=== PATIENT | female | born 1980 | race Caucasian/White ===

== ENCOUNTER 2019-06-29 14:18 | Emergency (ER) | payer OTHER, SELFPAY ==
--- NOTE | 2019-06-29 16:06 | EDPHYS ---
Physician Documentation [facility] Name: Charu Lebron Age: 38 yrs Sex: Female : 1980 Arrival Date: 06/29/2019 Time: 14:22 Bed 9 Private MD: ED Physician Julius Benton HPI: 06/29 17:33 This 38 yrs old Female presents to ER via Ambulatory with complaints of Sore snw Throat, Skin Problem. 17:33 The patient presents with sore throat. The patient describes throat pain as dry, snw scratchy. Onset: The symptoms/episode began/occurred suddenly, 3 day(s) ago, and became persistent. Severity of symptoms: At their worst the symptoms were moderate, severe. Associated signs and symptoms: Pertinent positives: flu-like symptoms, Sore throat. The patient has not experienced similar symptoms in the past. The patient has not recently seen a physician. 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 - Social history:: Smoking status: . - Ebola Screening: : Patient denies travel to an Ebola-affected area in the 21 days before illness onset. ROS: 17:30 Eyes: Negative for injury, pain, redness, and discharge, ENT: Negative for injury and snw discharge, + sore throat Neck: Negative for injury, pain, and swelling, Cardiovascular: Negative for chest pain, palpitations, and edema, Respiratory: Negative for shortness of breath, cough, wheezing, and pleuritic chest pain, Abdomen/GI: Negative for abdominal pain, nausea, vomiting, diarrhea, and constipation, Back: Negative for injury and pain, : Negative for injury, bleeding, discharge, and swelling, MS/Extremity: Negative for injury and deformity, Neuro: Negative for headache, weakness, numbness, tingling, and seizure, Psych: Negative for depression, anxiety, suicide ideation, homicidal ideation, and hallucinations, Allergy/Immunology: Negative for hives, rash, and allergies. 17:30 Constitutional: Positive for fatigue, malaise, sore throat. 17:30 Skin: Positive for rash. Exam: 17:29 Head/Face: Normocephalic, atraumatic. Eyes: Pupils equal round and reactive to light, snw extra-ocular motions intact. Lids and lashes normal. Conjunctiva and sclera are non-icteric and not injected. Cornea within normal limits. Periorbital areas with no swelling, redness, or edema. ENT: Nares patent. No nasal discharge, no septal abnormalities noted. Tympanic membranes are normal and external auditory canals are clear. Oropharynx with no redness, swelling, or masses, exudates, or evidence of obstruction, uvula midline. Mucous membranes moist. Neck: Trachea midline, no thyromegaly or masses palpated, and no cervical lymphadenopathy. Supple, full range of motion without nuchal rigidity, or vertebral point tenderness. No Meningismus. Chest/axilla: Normal chest wall appearance and motion. Nontender with no deformity. No lesions are appreciated. Cardiovascular: Regular rate and rhythm with a normal S1 and S2. No gallops, murmurs, or rubs. Normal PMI, no JVD. No pulse deficits. Respiratory: Lungs have equal breath sounds bilaterally, clear to auscultation and percussion. No rales, rhonchi or wheezes noted. No increased work of breathing, no retractions or nasal flaring. Abdomen/GI: Soft, non-tender, with normal bowel sounds. No distension or tympany. No guarding or rebound. No evidence of tenderness throughout. Back: No spinal tenderness. No costovertebral tenderness. Full range of motion. MS/ Extremity: Pulses equal, no cyanosis. Neurovascular intact. Full, normal range of motion. Neuro: Awake and alert, GCS 15, oriented to person, place, time, and situation. Cranial nerves II-XII grossly intact. Motor strength 5/5 in all extremities. Sensory grossly intact. Cerebellar exam normal. Normal gait. Psych: Awake, alert, with orientation to person, place and time. Behavior, mood, and affect are within normal limits. 17:29 Constitutional: The patient appears alert, awake. 17:29 Skin: Appearance: normal except for affected area, eczema, on the right arm and left arm. Vital Signs: 14:24 BP 139 / 75; Pulse 93; Resp 17; Temp 98.8(O); Pulse Ox 100% on R/A; Weight 95.71 kg tw2 (R); Pain 5/10; MDM: 14:47 Patient medically screened. snw 17:33 Data reviewed: vital signs, nurses notes. Data interpreted: Pulse oximetry: on room air snw is 100 %. Interpretation: normal. Counseling: I had a detailed discussion with the patient and/or guardian regarding: the historical points, exam findings, and any diagnostic results supporting the discharge/admit diagnosis, the presence of at least one elevated blood pressure reading (>120/80) during this emergency department visit, lab results, the need for outpatient follow up, to return to the emergency department if symptoms worsen or persist or if there are any questions or concerns that arise at home. Special discussion: I have referred the patient to see his PCP for further evaluation of high blood pressure. Based on the history and exam findings, there is no indication for further emergent testing or inpatient evaluation. I discussed with the patient/guardian the need to see the primary care provider for further evaluation of the symptoms. 06/29 14:42 Order name: Flu; Complete Time: 15:48 snw 06/29 14:42 Order name: Strep; Complete Time: 15:48 snw 06/29 15:43 Order name: Throat Culture EDAR Administered Medications: No medications were administered Disposition: 06/29/19 16:05 Discharged to Home. Impression: Influenza due to other identified influenza virus - B, Eczema. - Condition is Stable. - Discharge Instructions: Eczema, Influenza, Adult, Rehydration, Adult. - Prescriptions for promethazine 25 mg Oral Tablet - take 1 tablet by ORAL route every 6 hours As needed; 20 tablet. - Medication Reconciliation Form, Thank You Letter, Antibiotic Education, Prescription Opioid Use, Work release form form. - Follow up: Private Physician; When: 1 week; Reason: Recheck today's complaints, Continuance of care, Re-evaluation by your physician. Follow up: Emergency Department; When: As needed; Reason: Worsening of condition. Addendum: 07/03/2019 06:31 Co-signature as Attending Physician, Julius Benton MD I agree with the assessment and k dr plan of care. Signatures: Dispatcher [employer] EDAR Julius Benton MD MD [facility] Vanna Gonzalez, PARAOPTOMETRIC-C PARAOPTOMETRIC-Csnw Amna Young RN RN tw2 Corrections: (The following items were deleted from the chart) 06/29 16:19 16:05 06/29/2019 16:05 Discharged to Home. Impression: Influenza due to other tw2 identified influenza virus - B; Eczema. Condition is Stable. Forms are Work release form, Medication Reconciliation Form, Thank You Letter, Antibiotic Education, Prescription Opioid Use. Follow up: Private Physician; When: 1 week; Reason: Recheck today's complaints, Continuance of care, Re-evaluation by your physician. Follow up: Emergency Department; When: As needed; Reason: Worsening of condition. snw
--- NOTE | 2019-06-29 16:06 | ER ---
Nurse's Notes [facility] Name: Charu Lebron Age: 38 yrs Sex: Female : 1980 Arrival Date: 06/29/2019 Time: 14:22 Bed 9 Private MD: Diagnosis: Influenza due to other identified influenza virus-B;Eczema Presentation: 06/29 14:23 Presenting complaint: Patient states: i have had a cough and sore throat for a week, tw2 and i have had spots on my RIGHT arm for a week and a little on my left arm. Presenting complaint: Patient states: i dont know if its poison ezequiel or what. Transition of care: patient was not received from another setting of care. Onset of symptoms was June 29, 2019. Risk Assessment: Do you want to hurt yourself or someone else? Patient reports no desire to harm self or others. Initial Sepsis Screen: Does the patient meet any 2 criteria? No. Patient's initial sepsis screen is negative. Does the patient have a suspected source of infection? No. Patient's initial sepsis screen is negative. Care prior to arrival: None. 14:23 Method Of Arrival: Ambulatory tw2 14:23 Acuity: MELVIN 4 tw2 Triage Assessment: 14:25 General: Appears in no apparent distress. Behavior is calm, cooperative, appropriate tw2 for age. Pain: Complains of pain in uvula, left aspect of posterior pharynx and right aspect of posterior pharynx. EENT: Reports nasal congestion nasal discharge pain when swallowing. 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 - Social history:: Smoking status: . - Ebola Screening: : Patient denies travel to an Ebola-affected area in the 21 days before illness onset. Screenin:35 Abuse screen: Denies threats or abuse. Nutritional screening: No deficits noted. tw2 Tuberculosis screening: No symptoms or risk factors identified. Fall Risk None identified. Assessment: 14:35 General: Appears in no apparent distress. obese, Behavior is calm, cooperative, tw2 appropriate for age. Cardiovascular: Heart tones S1 S2 Patient's skin is warm and dry. Respiratory: Airway is patent Respiratory effort is even, unlabored, Respiratory pattern is regular, symmetrical, Breath sounds are clear bilaterally. EENT: Throat is reddened. Derm: Rash noted that is red, raised, on right leg and left leg. Vital Signs: 14:24 BP 139 / 75; Pulse 93; Resp 17; Temp 98.8(O); Pulse Ox 100% on R/A; Weight 95.71 kg tw2 (R); Pain 5/10; ED Course: 14:22 Patient arrived in ED. as 14:24 Triage completed. tw2 14:25 Arm band placed on. tw2 14:26 Bed in low position. Call light in reach. tw2 14:42 Vanna Gonzalez FNP-C is [facility]. snw 14:42 Julius Benton MD is Attending Physician. snw 16:02 Amna Young, RN is Primary Nurse. tw2 16:18 No provider procedures requiring assistance completed. Patient did not have IV access tw2 during this emergency room visit. Administered Medications: No medications were administered Outcome: 16:05 Discharge ordered by . snw 16:18 Discharged to home ambulatory. tw2 16:18 Condition: good 16:18 Discharge instructions given to patient, family, Instructed on discharge instructions, follow up and referral plans. medication usage, Demonstrated understanding of instructions, follow-up care, medications, Prescriptions given X 1. 16:19 Patient left the ED. tw2 Signatures: Vanna Gonzalez FNP-C WELT INSOLE CHANNELER-Csnw Varsha Lazaro as Amna Young, RN RN tw2
[2019-06-29 16:41] VITALS: BP 139/75; TEMP 98.8; O2SAT 100
== END 2019-06-29 16:19 | disposition home or self-care (01) ==
LOC: ER 14:18
DX: J10.1 Influenza due to other identified influenza virus with other respiratory manifestations (principal); L30.9 Dermatitis, unspecified
CPT/HCPCS: 87070; 87081; 87804; 99282

== ENCOUNTER 2019-08-27 21:53 | Emergency (ER) | payer SELFPAY ==
--- NOTE | 2019-08-27 22:24 | ER ---
Nurse's Notes [facility] Name: Charu Lebron Age: 38 yrs Sex: Female : 1980 Arrival Date: 08/27/2019 Time: 21:55 Bed 17 Private MD: Diagnosis: Sprain of joints and ligaments of unspecified parts of neck Presentation: 08/27 22:09 Presenting complaint: Patient states: C/O back of neck sharp pain radiating to her left arm that started 4 days ago. Transition of care: patient was not received from another setting of care. Onset of symptoms was August 27, 2019. Risk Assessment: Do you want to hurt yourself or someone else? Patient reports no desire to harm self or others. Initial Sepsis Screen: Does the patient meet any 2 criteria? No. Patient's initial sepsis screen is negative. Does the patient have a suspected source of infection? No. Patient's initial sepsis screen is negative. Care prior to arrival: None. 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 - Social history:: Smoking status: Patient/guardian denies using tobacco, Patient/guardian denies using alcohol, street drugs, The patient lives with family. - Ebola Screening: : Patient negative for fever greater than or equal to 101.5 degrees Fahrenheit, and additional compatible Ebola Virus Disease symptoms Patient denies exposure to infectious person. - Family history:: not pertinent. Screenin:11 Abuse screen: Denies threats or abuse. Denies injuries from another. Nutritional screening: No deficits noted. Tuberculosis screening: No symptoms or risk factors identified. Fall Risk None identified. Assessment: 22:12 General: Appears in no apparent distress. Behavior is calm, cooperative, appropriate for age. Pain: Complains of pain in back of neck Pain radiates to left arm Pain currently is 8 out of 10 on a pain scale. Quality of pain is described as sharp, Pain began 2-3 days ago. Neuro: Level of Consciousness is awake, alert, obeys commands, Oriented to person, place, time, situation, Appropriate for age. Cardiovascular: Capillary refill < 3 seconds. Respiratory: Airway is patent Respiratory effort is even, unlabored, Respiratory pattern is regular, symmetrical. GI: Abdomen is flat, non-distended. : No signs and/or symptoms were reported regarding the genitourinary system. EENT: No signs and/or symptoms were reported regarding the EENT system. Derm: Skin is intact, is healthy with good turgor, Skin is pink, warm \T\ dry. normal. Musculoskeletal: Circulation, motion, and sensation intact. Vital Signs: 22:13 BP 128 / 98; Pulse 83; Resp 18; Temp 98.5; Pulse Ox 100% ; Weight 95.71 kg; Height 5 wh ft. 4 in. (162.56 cm); Pain 8/10; 22:13 Body Mass Index 36.22 (95.71 kg, 162.56 cm) ED Course: 21:55 Patient arrived in ED. cl3 21:57 Hemanth Kelly MD is Attending Physician. ma2 22:03 Angel Luis Hart is Primary Nurse. 22:10 Triage completed. 22:12 Patient has correct armband on for positive identification. Bed in low position. Call light in reach. Side rails up X 1. Pulse ox on. NIBP on. 22:14 Arm band placed on right wrist. 22:47 No provider procedures requiring assistance completed. Patient did not have IV access during this emergency room visit. Administered Medications: 22:32 Drug: [place] 5 mg-325 mg 1 tabs Route: PO; 22:47 Follow up: Response: No adverse reaction; Pain is decreased; RASS: Alert and Calm (0) Outcome: 22:23 Discharge ordered by . jeanine 22:47 Discharged to home ambulatory. 22:47 Condition: stable 22:47 Discharge instructions given to patient, Instructed on discharge instructions, follow up and referral plans. no drinking with medication, no driving heavy equipment, medication usage, POC Demonstrated understanding of instructions, follow-up care, medications, POC Prescriptions given X 2. 22:48 Patient left the ED. Signatures: Angel Luis Hart Hemanth Kelly MD MD ma2 Lewis, Charde cl3
--- NOTE | 2019-08-27 22:24 | EDPHYS ---
Physician Documentation [facility] Name: Charu Lebron Age: 38 yrs Sex: Female : 1980 Arrival Date: 08/27/2019 Time: 21:55 Bed 17 Private MD: ED Physician Hemanth Kelly HPI: 08/27 22:21 This 38 yrs old Female presents to ER via Ambulatory with complaints of Arm ma2 Pain. 22:21 The complaints affect the anterior aspect of left shoulder and left bicep. Onset: The ma2 symptoms/episode began/occurred gradually, 3 day(s) ago. Associated signs and symptoms: Pertinent negatives: erythema, nausea, pain, swelling. Severity of symptoms: At their worst the symptoms were mild, in the emergency department the symptoms are unchanged. The patient has not experienced similar symptoms in the past. left neck pain that radiat to left arm . 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 - Social history:: Smoking status: Patient/guardian denies using tobacco, Patient/guardian denies using alcohol, street drugs, The patient lives with family. - Ebola Screening: : Patient negative for fever greater than or equal to 101.5 degrees Fahrenheit, and additional compatible Ebola Virus Disease symptoms Patient denies exposure to infectious person. - Family history:: not pertinent. ROS: 22:21 Constitutional: Negative for fever, chills, and weight loss. ma2 22:21 All other systems are negative. Exam: 22:21 Constitutional: This is a well developed, well nourished patient who is awake, alert, ma2 and in no acute distress. Head/Face: Normocephalic, atraumatic. Eyes: Pupils equal round and reactive to light, extra-ocular motions intact. Lids and lashes normal. Conjunctiva and sclera are non-icteric and not injected. Cornea within normal limits. Periorbital areas with no swelling, redness, or edema. ENT: Nares patent. No nasal discharge, no septal abnormalities noted. Tympanic membranes are normal and external auditory canals are clear. Oropharynx with no redness, swelling, or masses, exudates, or evidence of obstruction, uvula midline. Mucous membranes moist. Neck: Trachea midline, no thyromegaly or masses palpated, and no cervical lymphadenopathy. Supple, full range of motion without nuchal rigidity, or vertebral point tenderness. No Meningismus. Chest/axilla: Normal chest wall appearance and motion. Nontender with no deformity. No lesions are appreciated. Cardiovascular: Regular rate and rhythm with a normal S1 and S2. No gallops, murmurs, or rubs. Normal PMI, no JVD. No pulse deficits. Respiratory: Lungs have equal breath sounds bilaterally, clear to auscultation and percussion. No rales, rhonchi or wheezes noted. No increased work of breathing, no retractions or nasal flaring. Abdomen/GI: Soft, non-tender, with normal bowel sounds. No distension or tympany. No guarding or rebound. No evidence of tenderness throughout. MS/ Extremity: Pulses equal, no cyanosis. Neurovascular intact. Full, normal range of motion. Neuro: Awake and alert, GCS 15, oriented to person, place, time, and situation. Cranial nerves II-XII grossly intact. Motor strength 5/5 in all extremities. Sensory grossly intact. Cerebellar exam normal. Normal gait. Vital Signs: 22:13 BP 128 / 98; Pulse 83; Resp 18; Temp 98.5; Pulse Ox 100% ; Weight 95.71 kg; Height 5 wh ft. 4 in. (162.56 cm); Pain 8/10; 22:13 Body Mass Index 36.22 (95.71 kg, 162.56 cm) MDM: 21:57 Patient medically screened. mt2 22:21 Differential diagnosis: contusion, abrasion, tendonitis. Data reviewed: vital signs, mt2 nurses notes. Counseling: I had a detailed discussion with the patient and/or guardian regarding: the historical points, exam findings, and any diagnostic results supporting the discharge/admit diagnosis, the presence of at least one elevated blood pressure reading (>120/80) during this emergency department visit. Response to treatment: the patient's symptoms have markedly improved after treatment. Administered Medications: 22:32 Drug: [place] 5 mg-325 mg 1 tabs Route: PO; 22:47 Follow up: Response: No adverse reaction; Pain is decreased; RASS: Alert and Calm (0) wh Disposition: 08/27/19 22:23 Discharged to Home. Impression: Sprain of joints and ligaments of unspecified parts of neck. - Condition is Stable. - Discharge Instructions: Muscle Strain, [id number]. - Prescriptions for Tylenol- Codeine #3 300-30 mg Oral Tablet - take 2 tablet by ORAL route every 6 hours As needed; 30 tablet. Cyclobenzaprine 10 mg Oral Tablet - take 1 tablet by ORAL route every 8 hours As needed; 30 tablet. - Medication Reconciliation Form, Thank You Letter, Antibiotic Education, Prescription Opioid Use form. - Follow up: Private Physician; When: Tomorrow; Reason: Continuance of care. Signatures: Angel Luis Hart Mohammad, MD MD ma2 Corrections: (The following items were deleted from the chart) 22:48 22:23 08/27/2019 22:23 Discharged to Home. Impression: Sprain of joints and ligaments wh of unspecified parts of neck. Condition is Stable. Forms are Medication Reconciliation Form, Thank You Letter, Antibiotic Education, Prescription Opioid Use. Follow up: Private Physician; When: Tomorrow; Reason: Continuance of care. ma2
[2019-08-27] MEDS ORDERED: HYDROCODONE/APAP 5/325 MG TAB ONE (22:28)
[2019-08-27 23:31] VITALS: BP 128/98; TEMP 98.5; O2SAT 100
== END 2019-08-27 22:48 | disposition home or self-care (01) ==
LOC: ER 21:53
DX: S13.9XXA Sprain of joints and ligaments of unspecified parts of neck, initial encounter (principal); X58.XXXA Exposure to other specified factors, initial encounter
CPT/HCPCS: 99283

== ENCOUNTER 2019-10-20 18:27 | Emergency (ER) | payer OTHER, SELFPAY ==
--- OUTSIDE RECORDS SUMMARY | 2019-10-20 18:29 | XMS REPORT ---
:1980 [facility] Address [address] [place] [address] Dr. Spence [address] [place] [id number] Care Team Providers Name Role Phone Unavailable Unavailable Unavailable Problems This patient has no known problems. Allergies, Adverse Reactions, Alerts This patient has no known allergies or adverse reactions. Medications This patient has no known medications.
--- OUTSIDE RECORDS SUMMARY | 2019-10-20 18:29 | XMS REPORT | Summary of Care ---
:1980 Author Organization [facility] Address [address] [place] [address] Care Team Providers Name Role Phone Michael Mann Primary Care Provider Encounter Details Date Type Department Care Team Description 09/11/2019 Orders Only [facility] Doctor Unassigned, No [address] [facility] Name [place] [phone] [id number] Allergies No Known Allergiesdocumented as of this encounter (statuses as of 09/11/2019) Medications Medication Sig Dispensed Refills Start Date End Date Status VITS Take by mouth. 0 Active W-CA,FE,FA,<1MG, ( VITAMIN ORAL) acetaminophen-codeine Take 1 tablet 0 Active (TYLENOL-CODEINE #4) by mouth every 300-60 mg tablet 4 (four) hours as needed for Pain. meloxicam 15 mg tablet Take 15 mg by 0 Active mouth daily. diphenhydrAMINE (BENADRYL Take 25 mg by 0 Active ALLERGY) 25 mg tablet mouth every 4 (four) hours as needed for Allergies. cetirizine (ZYRTEC) 10 mg Take 10 mg by 0 Active tablet mouth as needed for Allergies. documented as of this encounter (statuses as of 09/11/2019) Active Problems Problem Noted Date High-risk 06/18/2013 Overview: AMA at delivery. Genetics and detailed USG. 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 " a low uterine incision was made". 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 documented as of this encounter Last Filed Vital Signs Not on filedocumented in this encounter Plan of Treatment Health Maintenance Due Date Last Done Comments DTaP,Tdap,and Td Vaccines (1 - 08/16/2007 08/15/2007 Tdap) PAP SMEAR 06/11/2016 06/11/2013 Breast Cancer Screening 2018 (MAMMOGRAM) INFLUENZA VACCINE (#1) 2019 PNEUMOCOCCAL 0-64 YEARS COMBINED Aged Out No longer eligible based on SERIES patient's age to complete this topic documented as of this encounter Implants Implanted Type Area Sole Leveler Device Shelf Model / Identifier Expiration Date Serial / Lot Lolita Suture 5mm Tiffany 15.5mml Threaded Corkscrew [employer] Ref#[id number] - [id number] ANCHOR Right: [employer] 07/15/2019 [id number] / Implanted: Qty: 1 on 03/03/2018 by Gerber Felix DPM at [facility] [id number] / [id number] documented as of this encounter Procedures Procedure Name Priority Date/Time Associated Diagnosis Comments CONSENT/REFUSAL FOR Routine 09/11/2019 8:41 AM SENIOR TRAINING AND DEVELOPMENT REP DIAGNOSIS AND TREATMENT documented in this encounter Results Not on filedocumented in this encounter Insurance Payer Benefit Plan / Group Subscriber ID Effective Dates Phone Address Type AETNA AETNA HMO [id number] 2017-Present HMO documented as of this encounter
--- OUTSIDE RECORDS SUMMARY | 2019-10-20 18:30 | XMS REPORT | Summary of Care ---
:1980 Author Organization [facility] Address [address] [place] [address] Care Team Providers Name Role Phone Michael Mann Primary Care Provider Reason for Referral MRI/CAT Scan (STAT) Status Reason Specialty Diagnoses / Referred By Referred To Procedures Contact Contact New Request Diagnostic Diagnoses Acute left flank pain Luis Fernando Thornton Radiology Procedures CT ABDOMEN PELVIS WO LEILA Espinoza MD [address] [address] Reason for Visit Reason Comments Flank Pain Encounter Details Date Type Department Care Team Description 10/03/2019 Emergency ADC-Emergency Luis Fernando Thornton, Acute left flank pain (Primary Dx); Department Abdominal pain, unspecified abdominal location [address] [place] [address] [address] [place] [address] [facility] [phone] [place], [place] [id number] Allergies No Known Allergiesdocumented as of this encounter (statuses as of 10/03/2019) Medications Medication Sig Dispensed Refills Start Date End Date Status VITS Take by 0 Active W-CA,FE,FA,<1MG, mouth. ( VITAMIN ORAL) acetaminophen-codein Take 1 tablet 0 Active e (TYLENOL-CODEINE by mouth #4) 300-60 mg tablet every 4 (four) hours as needed for Pain. meloxicam 15 mg Take 15 mg by 0 Active tablet mouth daily. diphenhydrAMINE Take 25 mg by 0 Active (BENADRYL ALLERGY) mouth every 4 25 mg tablet (four) hours as needed for Allergies. cetirizine (ZYRTEC) Take 10 mg by 0 Active 10 mg tablet mouth as needed for Allergies. ibuprofen 600 mg Take 1 tablet 21 tablet 0 09/11/2019 Active tabletIndications: by mouth 3 Left cervical (three) times radiculopathy daily with meals. predniSONE 20 mg Take 2 30 tablet 0 09/11/2019 Active tabletIndications: tablets by Left cervical mouth daily radiculopathy for 5 days. traMADol (ULTRAM) 50 Take 1 tablet 20 tablet 0 10/03/2019 Active mg by mouth tabletIndications: every 6 (six) Acute left flank hours as pain needed for Pain (scale 7-10). ondansetron (ZOFRAN) Take 1 tablet 12 tablet 0 10/03/2019 Active 4 mg by mouth tabletIndications: every 8 Acute left flank (eight) hours pain as needed for Nausea and Vomiting (N/V). ondansetron (ZOFRAN) Take 1 tablet 12 tablet 0 10/03/2019 10/03/19 Discontinued 4 mg by mouth 20 (Duplicate) tabletIndications: every 8 Acute left flank (eight) hours pain as needed for Nausea and Vomiting (N/V). documented as of this encounter (statuses as of 10/03/2019) Active Problems Problem Noted Date High-risk 06/18/2013 Overview: AMA at delivery. Genetics and detailed USG. 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 " a low uterine incision was made". 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[employer] Utility documented as of this encounter (statuses as of 10/03/2019) Immunizations Name Administration Dates Next Due Td [...] of this encounter Last Filed Vital Signs Vital Sign Reading Time Taken Comments Blood Pressure 147/66 10/03/2019 5:00 AM DISPLAY DESIGNER Pulse 69 10/03/2019 5:00 AM DISPLAY DESIGNER Temperature 36.2 C (97.2 F) 10/03/2019 3:57 AM DISPLAY DESIGNER Respiratory Rate 20 10/03/2019 3:57 AM DISPLAY DESIGNER Oxygen Saturation 100% 10/03/2019 5:00 AM DISPLAY DESIGNER Inhaled Oxygen Concentration - - Weight 95.7 kg (211 lb) 10/03/2019 3:57 AM DISPLAY DESIGNER Height 162.6 cm (5' 4") 10/03/2019 3:57 AM DISPLAY DESIGNER Body Mass Index 36.22 10/03/2019 3:57 AM DISPLAY DESIGNER documented in this encounter Discharge Instructions Luis Fernando Barlow MD - 10/03/2019 DIAGNOSIS Diagnoses that have been ruled out: None Diagnoses that are still under consideration: None Final diagnoses: Acute left flank pain NO LIFE-THREATENING FINDINGS ON TODAY'S EXAM. PROCEDURES IN THE ER TODAY: Orders Placed This Encounter Procedures CT ABDOMEN PELVIS WO CONTRAST Complete Metabolic Panel CBC with Differential Lipase, Serum Urinalysis POCT Test CBC WITH DIFFERENTIAL MEDICATIONS ADMINISTERED IN THE ER TODAY AND DISCHARGE MEDICATIONS: Orders Placed This Encounter Medications ketorolac (TORADOL) injection 30 mg ondansetron (ZOFRAN (PF)) injection 4 mg ondansetron (ZOFRAN) 4 mg tablet traMADol (ULTRAM) 50 mg tablet FOLLOW-UP RECOMMENDATIONS: RECOMMEND FOLLOW-UP WITH A PRIMARY CARE PROVIDER OR SPECIALIST IN 2-5 DAYS, ESPECIALLY IF NO IMPROVEMENT IN SYMPTOMS. MAY FOLLOW-UP WITH A PROVIDER OF YOUR CHOICE, SUCH : 1. A PHYSICIAN OF YOUR CHOICE 2. [facility], . LOCATIONS IN [facility] 3. [facility], [address] [place] [address]; [phone] OR, IF YOU WISH TO FOLLOW-UP WITHIN THE [facility], MAY TRY THESE OPTIONS (CLINIC APPOINTMENTS AVAILABLE ON [id number] BASIS): 1. SCHEDULE AN APPOINTMENT ONLINE AT [facility] 2. OR CALL THE [facility] AT OR 3. OR CALL YOUR [facility] PHYSICIAN'S OFFICE DIRECTLY IF YOU ARE ALREADY AN ESTABLISHED [facility] PATIENT. RETURN TO ER FOR WORSENING OF SYMPTOMS documented in this encounter Plan of Treatment Health Maintenance Due Date Last Done Comments DTaP,Tdap,and Td Vaccines (1 - 1989 08/15/2007 Tdap) PAP SMEAR 06/11/2016 06/11/2013 Breast Cancer Screening 2018 (MAMMOGRAM) INFLUENZA VACCINE (#1) 2019 PNEUMOCOCCAL 0-64 YEARS COMBINED Aged Out No longer eligible based on SERIES patient's age to complete this topic documented as of this encounter Implants Implanted Type Area Payment Manager Device Shelf Model / Identifier Expiration Date Serial / Lot [place] Suture 5mm Tiffany 15.5mml Threaded Corkscrew Arthrex Ref#[id number] - [id number] ANCHOR Right: [employer] 07/15/2019 AR-1920S / Implanted: Qty: 1 on 03/03/2018 by Gerber Felix DPM at [facility] Foot [id number] / [id number] documented as of this encounter Procedures Procedure Name Priority Date/Time Associated Diagnosis Comments CT ABDOMEN PELVIS WO STAT 10/03/2019 4:26 Acute left flank Results for this CONTRAST AM DISPLAY DESIGNER pain procedure are in the results section. CBC WITH DIFFERENTIAL STAT 10/03/2019 4:12 Abdominal pain, Results for this AM DISPLAY DESIGNER unspecified procedure are in abdominal location the results section. POCT TEST Routine 10/03/2019 4:12 Abdominal pain, Results for this AM DISPLAY DESIGNER unspecified procedure are in abdominal location the results section. URINALYSIS STAT 10/03/2019 4:12 Abdominal pain, Results for this AM DISPLAY DESIGNER unspecified procedure are in abdominal location the results section. CBC WITH DIFFERENTIAL Routine 10/03/2019 4:12 Abdominal pain, Results for this AM DISPLAY DESIGNER unspecified procedure are in abdominal location the results section. COMP. METABOLIC PANEL STAT 10/03/2019 4:12 Abdominal pain, Results for this (33781) AM DISPLAY DESIGNER unspecified procedure are in abdominal location the results section. LIPASE STAT 10/03/2019 4:12 Abdominal pain, Results for this AM DISPLAY DESIGNER unspecified procedure are in abdominal location the results section. ASSIGNMENT OF Routine 10/03/2019 4:00 BENEFITS AM DISPLAY DESIGNER NOTICE OF PRIVACY Routine 10/03/2019 3:50 PRACTICES AM DISPLAY DESIGNER CONSENT/REFUSAL FOR Routine 10/03/2019 3:49 DIAGNOSIS AND AM DISPLAY DESIGNER TREATMENT documented in this encounter Results CT ABDOMEN PELVIS WO CONTRAST (10/03/2019 4:26 AM DISPLAY DESIGNER) Specimen Impressions Performed At PACS/VR/DOSE No hydronephrosis. No ureteral stones. Tiny punctate nonobstructive stones in the right kidney, measuring up to 2 mm No acute inflammatory process No free fluid No dilated loops of bowel RL: [address] ABDOMEN AND PELVIS WITHOUT IV CONTRAST PACS/VR/DOSE ORDERING PHYSICIAN: LUIS FERNANDO THORNTON HISTORY: Acute flank pain TECHNIQUE: Multiple axial CT images of the abdomen and pelvis were obtained without IV or PO contrast. CT scan performed according to ALARA (As low as reasonably achievable) principles. COMPARISON: None available. FINDINGS: Heart size normal. Lower lungs are clear. Liver, gallbladder, pancreas, spleen, adrenals, are unremarkable. Punctate nonobstructive stones are seen within the right kidney, measuring up to 2 mm. No ureteral stones. No hydronephrosis bilaterally. No hydroureter bilaterally. Bladder is unremarkable. No dilated loops of bowel. No evidence for appendicitis. No free fluid. Procedure Note [facility], Radiant Results Inft User - 10/03/2019 4:[address] ABDOMEN AND PELVIS WITHOUT IV CONTRAST ORDERING PHYSICIAN: LUIS FERNANDO THORNTON HISTORY: Acute flank pain TECHNIQUE: Multiple axial CT images of the abdomen and pelvis were obtained without IV or PO contrast. CT scan performed according to ALARA (As low as reasonably achievable) principles. COMPARISON: None available. FINDINGS: Heart size normal. Lower lungs are clear. Liver, gallbladder, pancreas, spleen, adrenals, are unremarkable. Punctate nonobstructive stones are seen within the right kidney, measuring up to 2 mm. No ureteral stones. No hydronephrosis bilaterally. No hydroureter bilaterally. Bladder is unremarkable. No dilated loops of bowel. No evidence for appendicitis. No free fluid. IMPRESSION No hydronephrosis. No ureteral stones. Tiny punctate nonobstructive stones in the right kidney, measuring up to 2 mm No acute inflammatory process No free fluid No dilated loops of bowel RL: 5252 Performing Organization Address City/State/Zipcode Phone Number PACS/VR/DOSE CBC WITH DIFFERENTIAL (10/03/2019 4:12 AM DISPLAY DESIGNER) WBC 8.06 4.30 - 11.10 [facility] 10*3/L HOSPITAL [facility]ORY RBC 4.45 3.93 - 5.25 [facility] 10*6/L HOSPITAL [facility] HGB 12.0 11.6 - 15.0 [facility] g/dL HOSPITAL [facility] HCT 38.5 35.7 - 45.2 % [facility] MCV 86.5 80.6 - 95.5 fL [facility] MCH 27.0 25.9 - 32.8 pg [facility] MCHC 31.2 (L) 31.6 - 35.1 [facility] g/dL [facility] RDW-SD 43.6 39.0 - 49.9 fL [facility] RDW-CV 13.8 12.0 - 15.5 % [facility] PLT 306 166 - 358 [facility] 10*3/L [facility] MPV 9.4 (L) 9.5 - 12.9 fL [facility] NRBC/100 WBC 0.0 0.0 - 10.0 /100 [facility] WBCs [facility] NRBC x10^3 <0.01 10*3/L [facility] GRAN MAT (NEUT) % 72.9 % [facility] IMM GRAN % 0.20 % [facility] LYMPH % 14.5 % [facility] MONO % 5.5 % [facility] EOS % 6.3 % [facility] BASO % 0.6 % [facility] GRAN MAT x10^3(ANC) 5.87 1.88 - 7.09 [facility] 10*3/uL HOSPITAL LAB[facility]ORY IMM GRAN x10^3 <0.03 0.00 - 0.06 [facility] 10*3/uL HOSPITAL [facility] LYMPH x10^3 1.17 (L) 1.32 - 3.29 [facility] 10*3/uL HOSPITAL LAB[facility] MONO x10^3 0.44 0.33 - 0.92 [facility] 10*3/uL HOSPITAL LAB[facility] EOS x10^3 0.51 (H) 0.03 - 0.39 [facility] 10*3/uL HOSPITAL LAB[facility] BASO x10^3 0.05 0.01 - 0.07 [facility] 10*3/uL [facility] Specimen Blood - VENOUS Performing Organization Address [facility] Centercode Phone Number [facility] CLIA: [id number], [address] [place] [address] POCT Test (10/03/2019 4:12 AM DISPLAY DESIGNER) POCT PREG negative On board controls acceptable present with C Line POCT PREG LOT # [id number] POCT PREG TEST DATE 03/14/2021 Specimen Urine - URINE, CLEAN CATCH Urinalysis (10/03/2019 4:12 AM DISPLAY DESIGNER) APPEARANCE Hazy (A) Clear [facility] COLOR Yellow Yellow [facility] PH 5.0 4.8 - 8.0 [facility] SP GRAVITY 1.024 1.003 - 1.030 [facility] GLU U QUAL Normal Normal [facility] BLOOD 3+ (A) Negative [facility] KETONES Negative Negative [facility] PROTEIN Negative Negative [facility] UROBILIN Normal Normal [facility] BILIRUBIN Negative Negative [facility] NITRITE Negative Negative [facility] LEUK ALONDRA Negative Negative [facility] RBC/HPF >182 (H) 0 - 3 HPF [facility] WBC/HPF 6 (H) 0 - 5 HPF [facility] BACTERIA Few (A) Negative [facility] MUCOUS Moderate (A) Negative LPF [facility] SQ EPITH 9 HPF [facility] YEAST BUD 1 <=1 HPF [facility] HYAL CAST 1 <=2 LPF [facility] Specimen Urine - URINE, CLEAN CATCH Performing Organization Address City/[facility]/Zipcode Phone Number [facility] CLIA: [id number], [address] [place] [address] Lipase, Serum (10/03/2019 4:12 AM DISPLAY DESIGNER) LIPASE 148 0 - 220 U/L [facility] LABOR[facility]ORY Specimen Blood - VENOUS Performing Organization Address City/[facility]/Zipcode Phone Number [facility] CLIA: [id number], [address] [place] [address] [facility] [address] Complete Metabolic Panel (10/03/2019 4:12 AM DISPLAY DESIGNER) NA 139 135 - 145 [facility] mmol/L [facility] K 4.4 3.5 - 5.0 [facility] mmol/L [facility] CL 109 (H) 98 - 108 mmol/L [facility] CO2 TOTAL 22 (L) 23 - 31 mmol/L [facility] AGAP 8 2 - 16 [facility] BUN 14 7 - 23 mg/dL [facility] GLUCOSE 104 70 - 110 mg/dL [facility] CREATININE 0.70 0.50 - 1.04 [facility] mg/dL [facility] TOTAL BILI 0.5 0.1 - 1.1 mg/dL [facility] CALCIUM 9.1 8.6 - 10.6 [facility] mg/dL [facility] T PROTEIN 7.2 6.3 - 8.2 g/dL [facility] ALBUMIN 4.2 3.5 - 5.0 g/dL [facility] ALK PHOS 85 34 - 122 U/L [facility] ALTv 19 5 - 35 U/L [facility] AST(SGOT) 29 13 - 40 U/L [facility] eGFR Calculation 92.7 mL/min/1.73m2 [facility] [place]) eGFR Calculation 112.3 mL/min/1.73m2 [facility] ([facility]) [facility] Specimen Blood - VENOUS Narrative Performed At Association of Glomerular Filtration Rate (GFR) [facility] LABORATORY and Staging of Kidney Disease* + + +- + | GFR (mL/min/1.73 m2) | With Kidney Damage | Without Kidney Damage + + +- + | >90 | Stage one | Normal + + +- + | 60-89 | Stage two | Decreased GFR + + +- + | 30-59 | Stage three | Stage three + + +- + | 15-29 | Stage four | Stage four + + +- + | <15 (or dialysis) | Stage five | Stage five + + +- + *Each stage assumes the associated GFR level has been in effect for at least three months. Stages 1 to 5, with or without kidney disease, indicate chronic kidney disease. Notes: Determination of stages one and two (with eGFR >59mL/min/1.73 m2) requires estimation of kidney damage for at least three months as defined by structural or functional abnormalities of the kidney, manifested by either: Pathological abnormalities or Markers of kidney damage (including abnormalities in the composition of the blood or urine or abnormalities in imaging tests). Performing Organization Address City/State/Zipcode Phone Number [facility] CLIA: [id number], [address] [place] [address] documented in this encounter Visit Diagnoses Diagnosis Acute left flank pain - Primary Abdominal pain, unspecified site Abdominal pain, unspecified abdominal location documented in this encounter Administered Medications Medication Order MAR Action Action Date Dose Rate Site ketorolac (TORADOL) injection 30 Given 10/03/2019 4:13 AM DISPLAY DESIGNER 30 mg mg 30 mg, Slow IV Push, ONCE, 1 dose, Tue10/03/19 at 0515, Routine, interior design faculty member approving Restricted medication: LUIS FERNANDO THORNTON ondansetron (ZOFRAN (PF)) injection 4 mg Given 10/03/2019 4:13 AM DISPLAY DESIGNER 4 mg 4 mg, Slow IV Push, ONCE, 1 dose, Tue10/03/19 at 0515, ORALIA documented in this encounter Insurance Payer Benefit Plan / Subscriber ID Effective Dates Phone Address Type Group HIM [id number] 2019-Present PPO [id number] ACTED RACTED documented as of this encounter
--- OUTSIDE RECORDS SUMMARY | 2019-10-20 18:30 | XMS REPORT | Summary of Care ---
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 radiculopathy (Primary [address] [place] [address] Dr [place], [place] Dx) [place] [phone] Allergies No Known Allergiesdocumented as of this encounter (statuses as of 09/11/2019) Medications Medication Sig Dispensed Refills Start Date End Date Status VITS Take by mouth. 0 Active W-CA,FE,FA,<1MG, ( VITAMIN ORAL) acetaminophen-codeine Take 1 tablet by 0 Active (TYLENOL-CODEINE #4) mouth every 4 300-60 mg tablet (four) hours as needed for Pain. meloxicam 15 mg tablet Take 15 mg by 0 Active mouth daily. diphenhydrAMINE Take 25 mg by 0 Active (BENADRYL ALLERGY) 25 mg mouth every 4 tablet (four) hours as needed for Allergies. cetirizine (ZYRTEC) 10 Take 10 mg by 0 Active mg tablet mouth as needed for Allergies. ibuprofen 600 mg Take 1 tablet by 21 tablet 0 09/11/2019 Active tabletIndications: Left mouth 3 (three) cervical radiculopathy times daily with meals. predniSONE 20 mg Take 2 tablets 30 tablet 0 09/11/2019 Active tabletIndications: Left by mouth daily cervical radiculopathy for 5 days. documented as of this encounter (statuses as of 09/11/2019) Active Problems Problem Noted Date High-risk 06/18/2013 Overview: AMA at delivery. Genetics and detailed USG. 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 " a low uterine incision was made". 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 documented as of this encounter (statuses [...] Sign Reading Time Taken Comments Blood Pressure 129/85 09/11/2019 8:49 AM CENTER DIRECTOR Pulse 76 09/11/2019 8:49 AM CENTER DIRECTOR Temperature 36.3 C (97.4 F) 09/11/2019 8:49 AM CENTER DIRECTOR Respiratory Rate 16 09/11/2019 8:49 AM CENTER DIRECTOR Oxygen Saturation 100% 09/11/2019 8:49 AM CENTER DIRECTOR Inhaled Oxygen Concentration - - Weight 95.7 kg (211 lb) 09/11/2019 8:49 AM CENTER DIRECTOR Height - - Body Mass Index 36.22 03/02/2018 8:00 AM CDT documented in this encounter Discharge Instructions Julius Vasquez FNP - 09/11/2019DIAGNOSIS 1. Left cervical radiculopathy NO LIFE-THREATENING FINDINGS ON TODAY'S EXAM. PROCEDURES IN THE ER TODAY: Emergency medical evaluation MEDICATIONS ADMINISTERED IN THE ER TODAY: Toradol, Prednisone YOUR PRESCRIPTIONS AND [id number] MEDICATION RECOMMENDATIONS: Ibuprofen Prednisone OTC Pepcid daily FOLLOW-UP RECOMMENDATIONS: RECOMMEND FOLLOW-UP WITH A PRIMARY CARE PROVIDER OR SPECIALIST IN 2-5 DAYS, ESPECIALLY IF NO IMPROVEMENT IN SYMPTOMS. MAY FOLLOW-UP WITH A PROVIDER OF YOUR CHOICE, SUCH : 1. A PHYSICIAN OF YOUR CHOICE 2. [facility], . LOCATIONS IN [facility] 3. [facility], [address], [place]; OR, IF YOU WISH TO FOLLOW-UP WITHIN THE [facility], MAY TRY THESE OPTIONS (CLINIC APPOINTMENTS AVAILABLE ON [id number] BASIS): 1. SCHEDULE AN APPOINTMENT ONLINE AT WWW[facility] 2. OR CALL THE [facility] AT OR 3. OR CALL YOUR [facility] PHYSICIAN'S OFFICE DIRECTLY IF YOU ARE ALREADY AN ESTABLISHED [facility] PATIENT. RETURN TO ER FOR WORSENING OF SYMPTOMS. Return to the ER for chest pain, shortness of breath, intractable vomiting, slurred speech, neck rigidity or fever greater than 100.4 AttachmentsThe following attachments cannot be sent through Care Everywhere.Neck Problems, Understanding (Guamanian)RICE (Guamanian)documented in this encounter Plan of Treatment Health Maintenance Due Date Last Done Comments DTaP,Tdap,and Td Vaccines (1 - 08/16/2007 08/15/2007 Tdap) PAP SMEAR 06/11/2016 06/11/2013 Breast Cancer Screening 2018 (MAMMOGRAM) INFLUENZA VACCINE (#1) 2019 PNEUMOCOCCAL 0-64 YEARS COMBINED Aged Out No longer eligible based on SERIES patient's age to complete this topic documented as of this encounter Implants Implanted Type Area Electric Motor Winder Device Shelf Model / Identifier Expiration Date Serial / Lot [place]sa[place] Suture 5mm Tiffany 15.5mml Threaded Corkscrew [employer] Ref#[id number] - [id number] ANCHOR Right: [employer] 07/15/2019 AR-1920S / Implanted: Qty: 1 on 03/03/2018 by Gerber Felix DPM at [facility] Foot [id number] / [id number] documented as of this encounter Procedures Procedure Name Priority Date/Time Associated Diagnosis Comments NOTICE OF PRIVACY Routine 09/11/2019 8:43 AM CENTER DIRECTOR PRACTICES documented in this encounter Results Not on filedocumented in this encounter Visit Diagnoses Diagnosis Left cervical radiculopathy - Primary Brachial neuritis or radiculitis nos documented in this encounter Administered Medications Medication Order MAR Action Action Date Dose Rate Site ketorolac (TORADOL) injection Given 09/11/2019 12:31 PM CENTER DIRECTOR 60 mg Right Hip 60 mg 60 mg, Intramuscular, ONCE, 1 dose, 09/11/19 at 1315, ORALIA, film crew member approving Restricted medication: EMERGENCY ROOM, predniSONE (DELTASONE) tablet 40 mg Given 09/11/2019 12:30 PM CENTER DIRECTOR 40 mg 40 mg, Oral, ONCE, 1 dose, 09/11/19 at 1315, ORALIA documented in this encounter Insurance Payer Benefit Plan / Subscriber ID Effective Dates Phone Address Type Group HIM [id number] 2019-Present PPO [id number] ACTED RACTED documented as of this encounter
[2019-10-20 19:31] LABS: Urine Bacteria <20 /HPF (<20); Urine RBC <5 /HPF (NONE SEEN)
[2019-10-20 19:47] LABS: Urine Blood NEGATIVE (NEG); Urine Glucose NEGATIVE (NEG); Urine Protein NEGATIVE (NEG); Urine Specific Gravity >1.030 (1.005-1.030); Urine pH 5.5 (5.0-7.0)
--- NOTE | 2019-10-20 19:50 | EDPHYS ---
Physician Documentation [facility] Name: Charu Lebron Age: 39 yrs Sex: Female : 1980 Arrival Date: 10/20/2019 Time: 18:30 Bed 16 Private MD: ED Physician Miah Meza HPI: 10/19 19:51 This 39 yrs old Female presents to ER via Ambulatory with complaints of Low snw Back Pain. 19:51 The patient presents with pain that is acute, with no known mechanism of injury. The snw symptoms are located in the low back. Location: mid back area. The problem was sustained from unknown cause. Onset: The symptoms/episode began/occurred acutely. Associated signs and symptoms: The patient has no apparent associated signs or symptoms. Severity of symptoms: At their worst the symptoms were moderate. The patient has experienced similar episodes in the past. 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 - Social history:: Smoking status: . ROS: 19:49 Constitutional: Negative for fever, chills, and weight loss, Eyes: Negative for injury, snw pain, redness, and discharge, ENT: Negative for injury, pain, and discharge, Neck: Negative for injury, pain, and swelling, Cardiovascular: Negative for chest pain, palpitations, and edema, Respiratory: Negative for shortness of breath, cough, wheezing, and pleuritic chest pain, Abdomen/GI: Negative for abdominal pain, nausea, vomiting, diarrhea, and constipation, : Negative for injury, bleeding, discharge, and swelling, MS/Extremity: Negative for injury and deformity, Skin: Negative for injury, rash, and discoloration, Neuro: Negative for headache, weakness, numbness, tingling, and seizure, Psych: Negative for depression, anxiety, suicide ideation, homicidal ideation, and hallucinations. 19:49 Back: Positive for pain at rest, pain with movement, of the mid back area. Exam: 19:48 Constitutional: This is a well developed, well nourished patient who is awake, alert, snw and in no acute distress. Head/Face: Normocephalic, atraumatic. Eyes: Pupils equal round and reactive to light, extra-ocular motions intact. Lids and lashes normal. Conjunctiva and sclera are non-icteric and not injected. Cornea within normal limits. Periorbital areas with no swelling, redness, or edema. ENT: Nares patent. No nasal discharge, no septal abnormalities noted. Tympanic membranes are normal and external auditory canals are clear. Oropharynx with no redness, swelling, or masses, exudates, or evidence of obstruction, uvula midline. Mucous membranes moist. Neck: Trachea midline, no thyromegaly or masses palpated, and no cervical lymphadenopathy. Supple, full range of motion without nuchal rigidity, or vertebral point tenderness. No Meningismus. Chest/axilla: Normal chest wall appearance and motion. Nontender with no deformity. No lesions are appreciated. Cardiovascular: Regular rate and rhythm with a normal S1 and S2. No gallops, murmurs, or rubs. Normal PMI, no JVD. No pulse deficits. Respiratory: Lungs have equal breath sounds bilaterally, clear to auscultation and percussion. No rales, rhonchi or wheezes noted. No increased work of breathing, no retractions or nasal flaring. Abdomen/GI: Soft, non-tender, with normal bowel sounds. No distension or tympany. No guarding or rebound. No evidence of tenderness throughout. Skin: Warm, dry with normal turgor. Normal color with no rashes, no lesions, and no evidence of cellulitis. MS/ Extremity: Pulses equal, no cyanosis. Neurovascular intact. Full, normal range of motion. Neuro: Awake and alert, GCS 15, oriented to person, place, time, and situation. Cranial nerves II-XII grossly intact. Motor strength 5/5 in all extremities. Sensory grossly intact. Cerebellar exam normal. Normal gait. Psych: Awake, alert, with orientation to person, place and time. Behavior, mood, and affect are within normal limits. 19:48 Back: pain, that is moderate, of the mid back area, ROM is normal, normal spinal alignment noted, CVA tenderness, is absent, muscle spasm, is appreciated in the mid back area. Vital Signs: 18:33 BP 163 / 104; Pulse 100; Resp 19; Temp 97.6(TE); Pulse Ox 99% on R/A; Weight 95.71 kg tw2 (R); Height 5 ft. 4 in. (162.56 cm); Pain 10/10; 19:27 BP 126 / 86; Pulse 75; Resp 18; Pulse Ox 100% on R/A; wh 20:20 BP 102 / 61; Pulse 74; Resp 18; Pulse Ox 93% on R/A; aj1 18:33 Body Mass Index 36.22 (95.71 kg, 162.56 cm) tw2 MDM: 18:59 Patient medically screened. snw 19:51 Data reviewed: vital signs, nurses notes. Data interpreted: Pulse oximetry: on room air snw is 100 %. Interpretation: normal. Counseling: I had a detailed discussion with the patient and/or guardian regarding: the historical points, exam findings, and any diagnostic results supporting the discharge/admit diagnosis, the presence of at least one elevated blood pressure reading (>120/80) during this emergency department visit, lab results, the need for outpatient follow up, to return to the emergency department if symptoms worsen or persist or if there are any questions or concerns that arise at home. Special discussion: I have referred the patient to see his PCP for further evaluation of high blood pressure. Based on the history and exam findings, there is no indication for further emergent testing or inpatient evaluation. I discussed with the patient/guardian the need to see the primary care provider for further evaluation of the symptoms. 10/19 18:59 Order name: Urine Culture [facility] 10/19 18:59 Order name: Urine Microscopic Only; Complete Time: 19:36 snw 10/19 19:20 Order name: Urine Dipstick--Ancillary (enter results); Complete Time: 19:52 ar5 10/19 19:20 Order name: Urine --Ancillary (enter results); Complete Time: 19:52 ar5 10/19 18:59 Order name: Urine Test (obtain specimen); Complete Time: 19:14 snw 10/19 18:59 Order name: Urine Dipstick-Ancillary (obtain specimen); Complete Time: 19:14 snw Administered Medications: 19:50 Drug: [place] (7.5 mg-325 mg) 1 tabs Route: PO; 20:22 Follow up: Response: No adverse reaction; Pain is decreased; RASS: Alert and Calm (0) wh 19:50 Drug: Valium 5 mg Route: PO; 20:22 Follow up: Response: No adverse reaction; Marked relief of symptoms; RASS: Alert and Calm (0) Disposition: 10/20 10:08 Co-signature as Attending Physician, Miah Meza MD. rn Disposition: 10/20/19 19:50 Discharged to Home. Impression: Low back pain, Muscle spasm of back. - Condition is Stable. - Discharge Instructions: Back Pain, Adult, Muscle Cramps and Spasms, Musculoskeletal Pain, Back Injury Prevention, [id number], Back Exercises, [id number], Cryotherapy, Heat Therapy. - Prescriptions for Mobic 7.5 mg Oral Tablet - take 1 tablet by ORAL route once daily take with food; 20 tablet. orphenadrine citrate 100 mg Oral Tablet Sustained Release - take 1 tablet by ORAL route 2 times per day As needed; 20 tablet. - Work release form, Medication Reconciliation Form, Thank You Letter, Antibiotic Education, Prescription Opioid Use form. - Follow up: Emergency Department; When: As needed; Reason: Worsening of condition. Follow up: Private Physician; When: 2 - 3 days; Reason: Recheck today's complaints, Continuance of care, Re-evaluation by your physician. - Problem is an acute exacerbation. - Symptoms have worsened. Signatures: Dispatcher [employer] EDMS Vanna Gonzalez, REYES-C FLIGHT TOWER DISPATCHER-Csnw Miah Meza MD MD rn Wise, Tara, RN RN [facility] [place] Corrections: (The following items were deleted from the chart) 10/19 19:50 19:50 10/20/2019 19:50 Discharged to Home. Impression: Low back pain; Muscle spasm of snw back. Condition is Stable. Forms are Medication Reconciliation Form, Thank You Letter, Antibiotic Education, Prescription Opioid Use. Follow up: Emergency Department; When: As needed; Reason: Worsening of condition. Follow up: Private Physician; When: 2 - 3 days; Reason: Recheck today's complaints, Continuance of care, Re-evaluation by your physician. snw 20:23 19:50 10/20/2019 19:50 Discharged to Home. Impression: Low back pain; Muscle spasm of wh back. Condition is Stable. Forms are Medication Reconciliation Form, Thank You Letter, Antibiotic Education, Prescription Opioid Use. Follow up: Emergency Department; When: As needed; Reason: Worsening of condition. Follow up: Private Physician; When: 2 - 3 days; Reason: Recheck today's complaints, Continuance of care, Re-evaluation by your physician. Problem is an acute exacerbation. Symptoms have worsened. snw
--- NOTE | 2019-10-20 19:50 | ER ---
Nurse's Notes [facility] Name: Charu Lebron Age: 39 yrs Sex: Female : 1980 Arrival Date: 10/20/2019 Time: 18:30 Bed 16 Private MD: Diagnosis: Low back pain;Muscle spasm of back Presentation: 10/19 18:33 Chief complaint: Patient states: my lower back hurts me really bad its all across my tw2 lower back, i have back problems but i thought i just slept wrong but i have tried muscle cream and tylenol but it is not really helping and i work for [employer] and have to be careful. Coronavirus screen: The patient has NOT traveled to a country currently being monitored by the [facility] within the last 14 days. Ebola Screen: Patient denies travel to an Ebola-affected area in the 21 days before illness onset. Initial Sepsis Screen: Does the patient meet any 2 criteria? HR > 90 bpm. No. Patient's initial sepsis screen is negative. Does the patient have a suspected source of infection? No. Patient's initial sepsis screen is negative. Risk Assessment: Do you want to hurt yourself or someone else? Patient reports no desire to harm self or others. 18:33 Method Of Arrival: Ambulatory tw2 18:33 Acuity: MELVIN 4 tw2 19:28 Onset of symptoms was October 20, 2019. Triage Assessment: 18:34 General: Appears uncomfortable, obese, Behavior is calm, cooperative, appropriate for tw2 age. Pain: Complains of pain in lumbar area, left low back and right low back. MANAGER TALENT MANAGEMENT: 19:29 [facility] 09/2019 Historical: - Allergies: 18:35 NKDA; tw2 - PMHx: 18:35 bone spurrs in tristan feet; tw2 - PSHx: 18:35 ; Hernia repair; tw2 - Immunization history:: Adult Immunizations. - Social history:: Smoking status: . Screenin:27 Abuse screen: Denies threats or abuse. Denies injuries from another. Nutritional screening: No deficits noted. Tuberculosis screening: No symptoms or risk factors identified. Fall Risk None identified. Assessment: 19:15 General: Appears in no apparent distress. Behavior is calm, cooperative, appropriate for age. Pain: Complains of pain in lumbar area Pain does not radiate. Pain currently is 9 out of 10 on a pain scale. Quality of pain is described as aching. Neuro: Level of Consciousness is awake, alert, obeys commands, Oriented to person, place, time, situation, Appropriate for age. Cardiovascular: Capillary refill < 3 seconds. Respiratory: Airway is patent Respiratory effort is even, unlabored, Respiratory pattern is regular, symmetrical. GI: Abdomen is flat, non-distended. : No signs and/or symptoms were reported regarding the genitourinary system. EENT: No signs and/or symptoms were reported regarding the EENT system. Derm: Skin is intact, is healthy with good turgor, Skin is pink, warm \T\ dry. normal. Musculoskeletal: Circulation, motion, and sensation intact. 20:19 Reassessment: Patient appears in no apparent distress at this time. No changes from previously documented assessment. Patient and/or family updated on plan of care and expected duration. Pain level reassessed. Patient is alert, oriented x 3, equal unlabored respirations, skin warm/dry/pink. Patient states feeling better. Vital Signs: 18:33 BP 163 / 104; Pulse 100; Resp 19; Temp 97.6(TE); Pulse Ox 99% on R/A; Weight 95.71 kg tw2 (R); Height 5 ft. 4 in. (162.56 cm); Pain 10/10; 19:27 BP 126 / 86; Pulse 75; Resp 18; Pulse Ox 100% on R/A; wh 20:20 BP 102 / 61; Pulse 74; Resp 18; Pulse Ox 93% on R/A; aj1 18:33 Body Mass Index 36.22 (95.71 kg, 162.56 cm) tw2 ED Course: 18:30 Patient arrived in ED. ag5 18:34 Triage completed. tw2 18:34 Arm band placed on. tw2 18:41 Vanna Gonzalez FNP-C [facility] snw 18:41 Miah Meza MD is Attending Physician. snw 19:14 Angel Luis Hart is Primary Nurse. wh 19:27 Patient has correct armband on for positive identification. Bed in low position. Call light in reach. Side rails up X 1. Pulse ox on. NIBP on. 20:20 No provider procedures requiring assistance completed. Patient did not have IV access aj1 during this emergency room visit. Administered Medications: 19:50 Drug: [place] (7.5 mg-325 mg) 1 tabs Route: PO; 20:22 Follow up: Response: No adverse reaction; Pain is decreased; RASS: Alert and Calm (0) 19:50 Drug: Valium 5 mg Route: PO; 20:22 Follow up: Response: No adverse reaction; Marked relief of symptoms; RASS: Alert and Calm (0) Outcome: 19:50 Discharge ordered by . xiomara 20:21 Discharged to home ambulatory, with family. 20:21 Condition: stable 20:21 Discharge instructions given to patient, family, Instructed on discharge instructions, follow up and referral plans. medication usage, POC Demonstrated understanding of instructions, follow-up care, medications, POC Prescriptions given X 2. 20:23 Patient left the ED. Signatures: Humera Licona, RN RN aj1 Vanna Gonzalez, LINOLEUM INSTALLER-C LINOLEUM INSTALLER-Csnw Amna Young RN RN tw2 Angel Luis Hart Dione Hunt ag5 Corrections: (The following items were deleted from the chart) 20: 20:19 Reassessment: Patient appears in no apparent distress at this time. No changes aj1 from previously documented assessment. Patient and/or family updated on plan of care and expected duration. Pain level reassessed. Patient is alert, oriented x 3, equal unlabored respirations, skin warm/dry/pink. aj1 20:21 20:19 Reassessment: Patient appears in no apparent distress at this time. No changes from previously documented assessment. Patient and/or family updated on plan of care and expected duration. Pain level reassessed. Patient is alert, oriented x 3, equal unlabored respirations, skin warm/dry/pink. Patient states feeling better. Patient states symptoms have improved. aj1
[2019-10-20] MEDS ORDERED: DIAZEPAM 5 MG TABLET ONE (19:52)
[2019-10-20] MEDS ORDERED: HYDROCODONE/APAP 7.5/325 MG TAB ONE (19:53)
[2019-10-20 20:52] VITALS: TEMP 97.6
[2019-10-20 20:54] VITALS: BP 102/61; O2SAT 93
== END 2019-10-20 20:23 | disposition home or self-care (01) ==
LOC: ER 18:27
DX: M62.830 Muscle spasm of back (principal)
CPT/HCPCS: 81003; 81015; 81025; 87086; 87088; 99283

== ENCOUNTER 2020-02-19 17:01 | Emergency (ER) | payer OTHER ==
[2020-02-19] MEDS ORDERED: HYDROCODONE/APAP 7.5/325 MG TAB ONE (17:26)
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
[2020-02-19 18:20] VITALS: TEMP 98.6; O2SAT 100
[2020-02-19 18:22] VITALS: BP 148/88
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
--- OUTSIDE RECORDS SUMMARY | 2020-02-20 02:05 | XMS REPORT | Summary of Care ---
:1980 Author Organization [facility] Address [address] [place] [id number] Care Team Providers Name Role Phone Mackenzie Primary Care Provider Reason for Referral Radiology Services (STAT) Status Reason Specialty Diagnoses / Referred By Referred To Procedures Contact Contact New Request Diagnostic Diagnoses SOB (shortness of breath) Anxiousness Chest discomfort AufdLelo avila Radiology Procedures XR CHEST 2 VW MD Vicky [address] [place] [address]. [place] [address] Reason for Visit Reason Comments Anxiety Auth/Cert Status Reason Specialty Diagnoses / Referred By Referred To Procedures Contact Contact Emergency Medicine [facility] Em ergency Dept [address] [place] [phone] Fax: Encounter Details Date Type Department Care Team Description 02/18/2020 Emergency ADC-Emergency AufderLelo bejarano SOB (shor tness of breath) (Primary Dx); Department MD Vicky Anxiousness; [address] [place] [address] Chest discomfort; [place], [place] [phone] Allergies No Known Allergiesdocumented as of this encounter (statuses as of 02/18/2020) Medications Medication Sig Dispensed Refills Start Date [...] mouth daily cervical radiculopathy for 5 days. traMADol (ULTRAM) 50 mg Take 1 tablet by 20 tablet 0 0 Active tabletIndications: Acute mouth every 6 left flank pain (six) hours as needed for Pain (scale 7-10). ondansetron (ZOFRAN) 4 Take 1 tablet by 12 tablet 0 10/03/2019 Active mg tabletIndications: mouth every 8 Acute left flank pain (eight) hours as needed for Nausea and Vomiting (N/V). hydrOXYzine 10 mg Take 1 tablet by 20 tablet 0 02/18/2020 Active tabletIndications: mouth every 6 Anxiousness (six) hours as needed for Itching. documented as of this encounter (statuses as of 02/18/2020) Active Problems Problem Noted Date High-risk 06/18/2013 Overview: AMA at delivery. Genetics and detailed USG. ICD10 Diagnosis Term Hospice/Home Health Aide Utility Irregular menstrual cycle 06/18/2013 Single delivery by 06/18/2013 Overview: Received report from [facility] on previous done 02/14/08. "a low uterine incision was made". Obesity complicating , childbirth, or puerper ium, antepartum 06/11/2013 Overview: ICD10 Diagnosis Term Hospice/Home Health Aide Utility documented as of this encounter (statuses as of 02/18/2020) Immunizations Name Administration Dates Next Due Td [...] Travel End No recent travel history available. COVID-19 Exposure Response Date Recorded In the last month, have you been in contact with No / Unsure 02/18/2020 9:34 PM CDT someone who was confirmed or suspected to have Coronavirus / COVID-19? 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 RECOMMEND FOLLOW-UP WITH A PRIMARY CARE PROVIDER OR SPECIALIST IN A WEEK, ESPECIALLY IF NO IMPROVEMENT IN SYMPTOMS. IF YOU WISH TO FOLLOW-UP WITHIN THE [facility], MAY TRY THESE OPTIONS (CLINIC APPOINTMENTS AVAILABLE ON BHLO-IF-TGSK BASIS): 1. SCHEDULE AN APPOINTMENT ONLINE AT [email or web address] 2. OR CALL THE [facility]ESS CENTER AT OR 3. OR CALL YOUR [facility] PHYSICIAN'S OFFICE DIRECTLY IF YOU ARE ALREADY AN ESTABLISHED [facility] PATIENT. RETURN TO ER FOR WORSENING OF SYMPTOMS. AttachmentsThe following attachments cannot be sent through Care Everywhere. 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 CBC WITH DIFFERENTIAL STAT 02/18/2020 8:34 SOB (shortness of Results for this PM CDT breath) procedure are in Anxiousness the results Chest discomfort section. COMP. METABOLIC PANEL STAT 02/18/2020 8:34 SOB (shortness of Results for this (99954) PM CDT breath) procedure are in Anxiousness the results Chest discomfort section. TROPONIN I STAT 02/18/2020 8:34 SOB (shortness of Result s for this PM CDT breath) procedure are in Anxiousness the results Chest discomfort section. XR CHEST 2 VW STAT 02/18/2020 8:16 SOB (shortness of Resul ts for this PM CDT breath) procedure are in Anxiousness the results Chest discomfort section. EKG-12 LEAD Routine 02/18/2020 8:05 PM CDT NOTICE OF PRIVACY Routine 02/18/2020 7:08 PRACTICES PM CDT CONSENT/REFUSAL FOR Routine 02/18/2020 7:07 DIAGNOSIS AND PM CDT TREATMENT documented in this encounter Results CBC WITH DIFFERENTIAL (02/18/2020 8:34 PM CDT) Pathologist Sig nature WBC 6.87 4.30 - 11.10 [facility] 10*3/L [facility] RBC 4.11 3.93 - 5.25 [facility] 10*6/L [facility] HGB 11.0 (L) 11.6 - 15.0 [facility] g/dL HOSPITAL [facility] HCT 33.7 (L) 35.7 - 45.2 % [facility] MCV 82.0 80.6 - 95.5 fL [facility] MCH 26.8 25.9 - 32.8 pg [facility] MCHC 32.6 31.6 - 35.1 [facility] g/dL [facility] RDW-SD 39.9 39.0 - 49.9 fL [facility] RDW-CV 13.4 12.0 - 15.5 % [facility] PLT 271 166 - 358 [facility] 10*3/L [facility] MPV 9.8 9.5 - 12.9 fL [facility] NRBC/100 WBC 0.0 0.0 - 10.0 /100 [facility] WBCs [facility] NRBC x10^3 <0.01 10*3/L [facility] GRAN MAT (NEUT) % 67.9 % [facility] IMM GRAN % 0.30 % [facility] LYMPH % 21.4 % [facility] MONO % 7.4 % [facility] EOS % 2.6 % [facility] BASO % 0.4 % [facility] GRAN MAT x10^3(ANC) 4.66 1.88 - 7.09 [facility] 10*3/uL [facility] IMM GRAN x10^3 <0.03 0.00 - 0.06 [facility] 10*3/uL [facility] LYMPH x10^3 1.47 1.32 - 3.29 [facility] 10*3/uL [facility] MONO x10^3 0.51 0.33 - 0.92 [facility] 10*3/uL [facility] EOS x10^3 0.18 0.03 - 0.39 [facility] 10*3/uL HOSPITAL [facility] BASO x10^3 0.03 0.01 - 0.07 [facility] 10*3/uL [facility] Specimen Blood - VENOUS Performing Organization Address City/State/Zipcode Phone Number [facility] CLIA: [id number], [address] [place], [place] [address] TROPONIN I (02/18/2020 8:34 PM CDT) Pathologist Sig nature TROPONIN I <0.012 <=0.034 ng/mL [facility] Specimen Blood - VENOUS Narrative Performed At Equal or Less than 0.034 ng/ml---Normal [facility] Note: Cardiac troponin begins to rise 3-4 hours after the onset of ischemia. Repeat in 4-6 hours if the sample was drawn within 3-4 hours of the onset of the symptom and found normal. Between 0.035 and 0.120 ng/mL--- Borderline. Questionable myocardial injury or necros is Note: Serial measurement may be necessary to confirm or exclude the diagnosis of myocardial injury or necrosis; Clinical correlation (symptoms, EKGs, imaging studies, and others) required; Repeat in 4-6 hours if clinically indicated. Equal or Higher than 0.121 ng/mL---Abnormal. Myocardial Injury or Necrosis Likely Biotin has been reported to cause a negative bias, interpret results relative to patient's use of biotin. Performing Organization Address City/State/Zipcode Phone Number [facility] CLIA: [id number], [address] [place], [place] [address] COMP. METABOLIC PANEL (76769) (02/18/2020 8:34 PM CDT) [facility] nature NA 138 135 - 145 [facility] mmol/L [facility] K 3.4 (L) 3.5 - 5.0 [facility] mmol/L [facility] CL 109 (H) 98 - 108 mmol/L [facility] CO2 TOTAL 22 (L) 23 - 31 mmol/L [facility] AGAP 7 2 - 16 [facility] BUN 9 7 - 23 mg/dL [facility] GLUCOSE 98 70 - 110 mg/dL [facility] CREATININE 0.79 0.50 - 1.04 [facility] mg/dL [facility] TOTAL BILI 0.4 0.1 - 1.1 mg/dL [facility] CALCIUM 9.3 8.6 - 10.6 [facility] mg/dL [facility] T PROTEIN 7.3 6.3 - 8.2 g/dL [facility] ALBUMIN 4.2 3.5 - 5.0 g/dL [facility] ALK PHOS 79 34 - 122 U/L [facility] ALTv 22 5 - 35 U/L [facility] AST(SGOT) 31 13 - 40 U/L [facility] eGFR Calculation 80.2 mL/min/1.73m2 [facility] [place]) eGFR Calculation 97.2 mL/min/1.73m2 [facility] () [facility] Specimen Blood - VENOUS Narrative Performed At Association of Glomerular Filtration Rate (GFR) [facility] and Staging of Kidney Disease* + [...] tests). Performing Organization Address City/State/Zipcode Phone Number [facility] CLIA: [id number], [address] [place], [place] [address] XR CHEST 2 VW (02/18/2020 8:16 PM CDT) Specimen Impressions Performed At PACS/VR/DOSE No acute cardiopulmonary abnormality. Preliminary Report Dictated by Resident: Carina Espana MD., have reviewe d this study and agree with the above report. Narrative Performed At EXAM: XR CHEST 2 VW PACS/VR/DOSE HISTORY: SOB COMPARISON: None FINDINGS: The lungs are clear. No pneumothorax or pleural effusion. The cardiomediastinal silhouette is normal i n size. No acute osseous abnormalities. Procedure Note [facility], Radiant Results Inft User - 2019 8:56 PM CDT EXAM: XR CHEST 2 VW HISTORY: SOB COMPARISON: None FINDINGS: The lungs are clear. No pneumothorax or pleural effusion. The cardiomediastinal silhouette is normal i n size. No acute osseous abnormalities. IMPRESSION No acute cardiopulmonary abnormality. Preliminary Report Dictated by Resident: Roc Zuniga I, Carina Oleary MD., have reviewed this study and agree with the above report. Performing Organization Address City/State/Zipcode Phone Number PACS/VR/DOSE documented in this encounter Visit Diagnoses Diagnosis SOB (shortness of breath) - Primary Shortness of breath Anxiousness Anxiety state, unspecified Chest discomfort Other chest pain Anxiety Anxiety state, unspecified documented in this encounter Administered Medications Medication Order MAR Action Action Date Dose Rate Site LORazepam (ATIVAN) tablet 0.5 mg Given 02/18/2020 8:35 PM CDT 0.5 mg 0.5 mg, Oral, ONCE, 1 dose, 02/18/20 at 2115, [place]AL[place] documented in this encounter Insurance Payer Benefit Plan / Subscriber ID Effective Dates Phone Addre ss Type Group HIM AMBETTER FROM HIM AMBETTER FROM [id number] 2019-Present [facility] documented as of this encounter
--- OUTSIDE RECORDS SUMMARY | 2020-02-20 02:05 | XMS REPORT | Continuity of Care Document ---
:1980 Author Organization [facility] t Address [address] [place] [address] Dr. Godinez. [address] [place] [address] Care Team Providers Name Role Phone Vicky yAala MD Attending Clinician Marietta MAYFIELD, Olga Attending Clinician Dayanna Montanez Attending Clinician Doctor Unassigned, Name Attending Clinician Unavailable Problems This patient has no known problems. Allergies, Adverse Reactions, Alerts This patient has no known allergies or adverse reactions. Medications This patient has no known medications. Procedures This patient has no known procedures. Encounters Start End Encounter Admission Attending Care Care Encounter Source Date/Time Date/Time Type Type Clinicians Facility Department ID 2020-02-18 2020-02-18 Emergency Jamie [facility] [id number] 19:48:59 21:51:00 Lelo [id number] Vicky Genao [id number] [place] [address] [id number] 2019-10-03 2019-10-03 Emergency Marietta [facility] [id number] 03:51:07 05:27:00 Luis Fernando Bear [id number] [place] [id number] [place] [address] [id number] 2019-09-11 2019-09-11 Emergency Julius Stephens [facility] [id number] 11:35:10 13:20:00 Dayanna Bear [id number] [place] [id number] [place] [id number] 2019-09-11 2019-09-11 Orders Doctor MONA [id number] 00:00:00 00:00:00 Only Unassigned, FÁTIMA [id number] [place] [facility] [id number] [id number] Results This patient has no known results.
== END 2020-02-19 18:09 | disposition home or self-care (01) ==
LOC: ER 17:01
DX: S60.211A Contusion of right wrist, initial encounter (principal); T23.071A Burn of unspecified degree of right wrist, initial encounter; T22.00XA Burn of unspecified degree of shoulder and upper limb, except wrist and hand, unspecified site, initial encounter; V49.40XA Driver injured in collision with unspecified motor vehicles in traffic accident, initial encounter; W22.11XA Striking against or struck by driver side automobile airbag, initial encounter
CPT/HCPCS: 99284

== ENCOUNTER 2020-05-11 07:57 | Emergency (ER) | payer OTHER ==
--- OUTSIDE RECORDS SUMMARY | 2020-05-11 07:58 | XMS REPORT | Continuity of Care Document ---
:[address] [facility] t Address [address] [place] [address] Dr. Godinez. [address] [place] [address] Care Team Providers Name Role Phone Vicky Ayala MD Attending Clinician Olga Mcmanus MD Attending Clinician Dayanna Montanez Attending Clinician Doctor [...] Facility Department ID 2020-02-18 2020-02-18 Emergency Jamie [facility] [id number] 19:48:59 21:51:00 Lelo [id number] Vicky Genao [id number] [place] [id number] 2019-10-03 2019-10-03 Emergency [place] [facility] [id number] 03:51:07 05:27:00 Luis Fernando Bear [id number] [place] [id number] [place] [id number] 2019-09-11 2019-09-11 Emergency Julius Stephens [facility] [id number] 11:35:10 13:20:00 Dayanna Bear [id number] [place] [id number] [place] [id number] 2019-09-11 2019-09-11 Orders Doctor MONA [id number] 00:00:00 00:00:00 Only Unassigned, FÁTIMA [id number] [place] [facility] [id number] Results This patient has no known results.
[2020-05-11] MEDS ORDERED: CYCLOBENZAPRINE 10 MG TAB ONE (08:33)
[2020-05-11] MEDS ORDERED: LIDOCAINE 4% PATCH ONE (08:33)
[2020-05-11] MEDS ORDERED: dexAMETHasone 4 MG/ML VIAL ONE (08:34)
--- NOTE | 2020-05-11 09:39 | ER ---
Nurse's Notes [facility] Name: Charu Lebron Age: 39 yrs Sex: Female : 1980 Arrival Date: 05/11/2020 Time: 07:59 Bed 20 Private MD: Diagnosis: Low back pain Presentation: 05/11 08:11 Chief complaint: Patient states: low back pain X 2weeks, denies injury, also has iw chronic left knee pain that flared up recently. Coronavirus screen: At this time, the client does not indicate any symptoms associated with coronavirus-19. Ebola Screen: Patient negative for fever greater than or equal to 101.5 degrees Fahrenheit, and additional compatible Ebola Virus Disease symptoms Patient denies exposure to infectious person. Patient denies travel to an Ebola-affected area in the 21 days before illness onset. No symptoms or risks identified at this time. Initial Sepsis Screen: Does the patient meet any 2 criteria? No. Patient's initial sepsis screen is negative. Does the patient have a suspected source of infection? No. Patient's initial sepsis screen is negative. Risk Assessment: Do you want to hurt yourself or someone else? Patient reports no desire to harm self or others. Onset of symptoms was April 24, 2020. 08:11 Method Of Arrival: Ambulatory iw 08:11 Acuity: MELVIN 4 iw Triage Assessment: 08:20 General: Appears in no apparent distress. uncomfortable, Behavior is cooperative, bp appropriate for age, anxious. Pain: Complains of pain in back and left knee. EENT: No deficits noted. Neuro: No deficits noted. Cardiovascular: No deficits noted. Respiratory: No deficits noted. GI: No signs and/or symptoms were reported involving the gastrointestinal system. : No signs and/or symptoms were reported regarding the genitourinary system. Derm: No deficits noted. Musculoskeletal: Circulation, motion, and sensation intact. Range of motion: intact in all extremities. Historical: - Allergies: 08:14 NKDA; iw - Home Meds: 08:14 Allergy Medication oral oral [Active]; sleep aid [Active]; CBD oil [Active]; iw - PMHx: 08:14 Anxiety; bone spurrs in tristan feet; Depression; suicidal ideation; iw - PSHx: 08:14 ; Hernia repair; iw - Immunization history:: Adult Immunizations not up to date. - Social history:: Smoking status: Patient denies any tobacco usage or history of. Screenin:27 Abuse screen: Denies threats or abuse. Denies injuries from another. Nutritional bp screening: No deficits noted. Tuberculosis screening: No symptoms or risk factors identified. Fall Risk None identified. Assessment: 08:20 General: SEE TRIAGE NOTE. Neuro: Level of Consciousness is awake, alert, obeys bp commands, Oriented to person, place, time, situation, Appropriate for age. Vital Signs: 08:11 BP 114 / 69; Pulse 91; Resp 16; Temp 97.4; Pulse Ox 99% on R/A; Pain 8/10; iw 09:58 BP 121 / 72; Pulse 87; Resp 16; Temp 97.5; Pulse Ox 99% ; bp ED Course: 07:59 Patient arrived in ED. ds1 08:03 Ritesh Acharya, ROLANDO is Primary Nurse. bp 08:03 Oscar Galvez NP is PHCP. pm1 08:03 Julius Benton MD is Attending Physician. pm1 08:12 Triage completed. iw 08:14 Arm band placed on. iw 08:27 Patient has correct armband on for positive identification. Bed in low position. Call bp light in reach. Side rails up X2. 09:58 No provider procedures requiring assistance completed. Patient did not have IV access bp during this emergency room visit. Administered Medications: 08:28 Drug: Flexeril 10 mg Route: PO; iw 08:28 Drug: Decadron 10 mg {Note: given PO.} Route: IM; Site: Other; iw 08:29 Drug: Lidoderm 5 % (700 mg/patch) 1 patches {Note: low back.} Route: Topical; Site: affected area; Outcome: 09:39 Discharge ordered by MD. pm1 09:58 Discharged to home ambulatory. bp 09:58 Condition: stable 09:58 Discharge instructions given to patient, Instructed on discharge instructions, follow up and referral plans. medication usage, Demonstrated understanding of instructions, follow-up care, medications, Prescriptions given X 3. 09:59 Patient left the ED. bp Signatures: Cely Cervantes ds1 Mell Jensen RN RN iw Oscar Galvez NP MICROMATIC HONE OPERATOR pm1 Ritesh Acharya RN RN bp Corrections: (The following items were deleted from the chart) 08:15 08:11 Pulse 91bpm; Resp 16bpm; Pulse Ox 99% RA; Temp 97.4F; Pain 8/10; iw iw
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
[2020-05-11 10:05] VITALS: O2SAT 99
[2020-05-11 10:06] VITALS: BP 121/72; TEMP 97.5
== END 2020-05-11 09:59 | disposition home or self-care (01) ==
LOC: ER 07:57
DX: M54.5 Low back pain (principal)
CPT/HCPCS: 96372; 99283

== ENCOUNTER 2020-09-16 20:34 | Emergency (ER) | payer OTHER ==
[2011-09-22 08:22] VITALS: BP 148/79
--- OUTSIDE RECORDS SUMMARY | 2020-09-16 20:36 | XMS REPORT | Continuity of Care Document ---
:1980 Author Organization [facility] t Address [address] [place] [address] Dr. God[address] [place] [address] Care Team Providers Name Role Phone Vicky [...] Facility Department ID 2020-02-18 2020-02-18 Emergency Jamie [facility] [id number] 19:48:59 21:51:00 [place] [id number] Vicky Genao [id number] [place] [id number] 2019-10-03 2019-10-03 Emergency [place] M[facility] [id number] 03:51:07 05:27:00 Luis Fernando Bear [id number] [place] [id number] [place] [id number] 2019-09-11 2019-09-11 Emergency Julius Stephens [facility] [id number] 11:35:10 13:20:00 Dayanna Bear [id number] [place] [id number] [place] [id number] 2019-09-11 2019-09-11 Orders Doctor MONA [id number] 00:00:00 00:00:00 Only Unassigned, FÁTIMA [id number] [place] [facility] [id number] [id number] Results This patient has no known results.
[2020-09-16 23:28] LABS: Absolute Lymphocytes (CBC) 1.3 K/uL (0.7-4.9); Basophils % 0.3 % (0-1.3); Hematocrit 37.3 % (36.0-45.0); Lymphocytes % 10.7 % (15.3-44.8); MPV 7.8 fL (7.6-11.3); RBC Red Blood Cell Count 4.75 M/uL (3.86-4.86)
[2020-09-16 23:44] LABS: ALT/SGPT 25 U/L (12-78); AST/SGOT 22 U/L (15-37); Albumin 4.1 g/dL (3.4-5.0); Alkaline Phosphatase 92 U/L (45-117); BUN Blood Urea Nitrogen 10 mg/dL (7-18); Bicarbonate 26 mmol/L (21-32); Bilirubin Direct < 0.1 mg/dL (0-0.2); Bilirubin Total 0.3 mg/dL (0.2-1.0); Glucose Level 100 mg/dL (74-106); Lipase 193 U/L (73-393); Potassium 3.8 mmol/L (3.5-5.1); Protein, Total 8.1 g/dL (6.4-8.2); Sodium Level 142 mmol/L (136-145)
--- NOTE | 2020-09-16 23:46 | EDPHYS ---
Physician Documentation [facility] Name: Charu Lebron Age: 39 yrs Sex: Female : 1980 Arrival Date: 09/16/2020 Time: 20:47 Bed 5 Private MD: CARLI Physician Devang Pettit HPI: 09/16 23:30 This 39 yrs old Female presents to ER via Ambulatory with complaints of kb Abdominal Pain, Nausea/Vomiting. 23:30 The patient has not experienced similar symptoms in the past. The patient has not kb recently seen a physician. 23:30 The patient presents to the emergency department with nausea, vomiting. Onset: The kb symptoms/episode began/occurred today. Possible causes: bad food exposure, possibly bad restaurant food. The symptoms are aggravated by nothing. The symptoms are alleviated by nothing. Associated signs and symptoms: Pertinent positives: nausea, vomiting. Severity of symptoms: At their worst the symptoms were moderate in the emergency department the symptoms are unchanged. 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 - Social history:: Smoking status: Patient denies any tobacco usage or history of. ROS: 23:30 Constitutional: Negative for fever, chills, and weight loss, Cardiovascular: Negative kb for chest pain, palpitations, and edema, Respiratory: Negative for shortness of breath, cough, wheezing, and pleuritic chest pain, MS/Extremity: Negative for injury and deformity, Skin: Negative for injury, rash, and discoloration, Neuro: Negative for headache, weakness, numbness, tingling, and seizure. 23:30 Abdomen/GI: Positive for nausea and vomiting, Negative for abdominal pain, diarrhea. Exam: 23:30 Constitutional: This is a well developed, well nourished patient who is awake, alert, kb and in no acute distress. Head/Face: Normocephalic, atraumatic. Chest/axilla: Normal chest wall appearance and motion. Nontender with no deformity. No lesions are appreciated. Cardiovascular: Regular rate and rhythm with a normal S1 and S2. No gallops, murmurs, or rubs. Normal PMI, no JVD. No pulse deficits. Respiratory: Lungs have equal breath sounds bilaterally, clear to auscultation and percussion. No rales, rhonchi or wheezes noted. No increased work of breathing, no retractions or nasal flaring. Abdomen/GI: Soft, non-tender, with normal bowel sounds. No distension or tympany. No guarding or rebound. No evidence of tenderness throughout. Skin: Warm, dry with normal turgor. Normal color with no rashes, no lesions, and no evidence of cellulitis. MS/ Extremity: Pulses equal, no cyanosis. Neurovascular intact. Full, normal range of motion. Neuro: Awake and alert, GCS 15, oriented to person, place, time, and situation. Cranial nerves II-XII grossly intact. Motor strength 5/5 in all extremities. Sensory grossly intact. Cerebellar exam normal. Normal gait. Vital Signs: 21:42 BP 108 / 74; Pulse 68; Resp 16 S; Temp 97.4(TE); Pulse Ox 100% on R/A; Weight 96.16 kg ca1 (R); Height 5 ft. 3 in. (160.02 cm) (R); Pain 0/10; 23:43 BP 146 / 64; Pulse 60; Resp 18; Pulse Ox 98% ; ea 21:42 Body Mass Index 37.55 (96.16 kg, 160.02 cm) ca1 MDM: 23:01 Patient medically screened. [facility] 23:29 Data reviewed: vital signs, nurses notes. Data interpreted: Pulse oximetry: on room air kb is 100 %. Interpretation: normal. 23:31 Counseling: I had a detailed discussion with the patient and/or guardian regarding: the kb historical points, exam findings, and any diagnostic results supporting the discharge/admit diagnosis, lab results, the need for outpatient follow up, a family practitioner, to return to the emergency department if symptoms worsen or persist or if there are any questions or concerns that arise at home. 09/16 23:08 Order name: Basic Metabolic Panel kb 09/16 23:08 Order name: CBC with Diff kb 09/16 23:08 Order name: Hepatic Function; Complete Time: 23:45 kb 09/16 23:08 Order name: Lipase; Complete Time: 23:45 kb 09/16 23:09 Order name: Basic Metabolic Panel; Complete Time: 23:45 EDMS 09/16 23:09 Order name: CBC with Automated Diff; Complete Time: 23:32 EDMS 09/16 23:08 Order name: IV Saline Lock; Complete Time: 23:17 kb 09/16 23:08 Order name: Labs collected and sent; Complete Time: 23:17 kb 09/16 23:11 Order name: Urine --Ancillary (enter results) tt3 09/16 23:11 Order name: Urine Dipstick--Ancillary (enter results) tt3 09/16 23:12 Order name: Urine --Ancillary EDMS 09/16 23:12 Order name: Urine Dipstick-Ancillary EDMS Administered Medications: 23:41 Drug: NS 0.9% 1000 ml Route: IV; Rate: 1000 ml; Site: right antecubital; ea 09/17 00:04 Follow up: Response: No adverse reaction; IV Status: Completed infusion; IV Intake: ea 1000ml 09/16 23:41 Drug: Zofran (Ondansetron) 4 mg Route: IVP; Site: right antecubital; ea 09/17 00:05 Follow up: Response: No adverse reaction ea Disposition: 06:44 Co-signature as Attending Physician, Devang Pettit MD I agree with the assessment and tate plan of care. Disposition: 09/16/20 23:46 Discharged to Home. Impression: Nausea and vomiting. - Condition is Stable. - Discharge Instructions: Nausea and Vomiting, Adult, [id number]. - Prescriptions for Bentyl 20 mg Oral Tablet - take 1 tablet by ORAL route every 6 hours As needed; 20 tablet. Zofran 4 mg Oral Tablet - take 1 tablet by ORAL route every 6 hours As needed; 20 tablet. - Medication Reconciliation Form, Thank You Letter, Antibiotic Education, Prescription Opioid Use, Work release form form. - Follow up: Emergency Department; When: As needed; Reason: Worsening of condition. Follow up: Private Physician; When: 2 - 3 days; Reason: Recheck today's complaints, Continuance of care, Re-evaluation by your physician. Signatures: Dispatcher [facility] Ivanna Lagos, Devang Donnelly MD MD cha Antunez, Elena, Izabella Miller RN, ea, RN RN ca1 Corrections: (The following items were deleted from the chart) 00:06 09/16 23:46 09/16/2020 23:46 Discharged to Home. Impression: Nausea and vomiting. ea Condition is Stable. Discharge Instructions: Nausea and Vomiting, Adult, [id number]. Prescriptions for Bentyl 20 mg Oral Tablet - take 1 tablet by ORAL route every 6 hours As needed; 20 tablet, Zofran 4 mg Oral Tablet - take 1 tablet by ORAL route every 6 hours As needed; 20 tablet. and Forms are Medication Reconciliation Form, Thank You Letter, Antibiotic Education, Prescription Opioid Use. Follow up: Emergency Department; When: As needed; Reason: Worsening of condition. Follow up: Private Physician; When: 2 - 3 days; Reason: Recheck today's complaints, Continuance of care, Re-evaluation by your physician. kb
--- NOTE | 2020-09-16 23:46 | ER ---
Nurse's Notes [facility] Name: Charu Lebron Age: 39 yrs Sex: Female : 1980 Arrival Date: 09/16/2020 Time: 20:47 Bed 5 Private MD: Diagnosis: Nausea and vomiting Presentation: 09/16 21:42 Chief complaint: Patient states: Nausea and vomiting since 1830 today. Vomiting x 3 ca1 episodes. Denies abdominal pain. Denies diarrhea. Coronavirus screen: nausea, vomiting. Client presents with at least one sign or symptom that may indicate coronavirus-19. Standard/surgical mask placed on the client. Provider contacted for isolation considerations. Ebola Screen: Patient negative for fever greater than or equal to 101.5 degrees Fahrenheit, and additional compatible Ebola Virus Disease symptoms Patient denies exposure to infectious person. Patient denies travel to an Ebola-affected area in the 21 days before illness onset. No symptoms or risks identified at this time. Initial Sepsis Screen: Does the patient meet any 2 criteria? No. Patient's initial sepsis screen is negative. Does the patient have a suspected source of infection? No. Patient's initial sepsis screen is negative. Risk Assessment: Do you want to hurt yourself or someone else? Patient reports no desire to harm self or others. Onset of symptoms was September 16, 2020. 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 - Social history:: Smoking status: Patient denies any tobacco usage or history of. Screenin:42 Abuse screen: Denies threats or abuse. Nutritional screening: No deficits noted. ea Tuberculosis screening: No symptoms or risk factors identified. Fall Risk IV access (20 points). Assessment: 23:42 General: Appears in no apparent distress. Behavior is calm, cooperative, appropriate ea for age. Pain: Complains of pain in abdomen. Neuro: Level of Consciousness is awake, alert, obeys commands, Oriented to person, place, time. Cardiovascular: Patient's skin is warm and dry. Respiratory: Airway is patent Respiratory effort is even, unlabored, Respiratory pattern is regular, symmetrical. GI: Abdomen is non-distended. Derm: Skin is dry, Skin is pale, Skin temperature is warm. 09/17 00:03 Reassessment: Patient and/or family updated on plan of care and expected duration. Pain ea level reassessed. Patient is alert, oriented x 3, equal unlabored respirations, skin warm/dry/pink. Discharge instruction given to patient verbalized the understanding of instruction. Pt left ED ambulatory tolerating well. Vital Signs: 09/16 21:42 BP 108 / 74; Pulse 68; Resp 16 S; Temp 97.4(TE); Pulse Ox 100% on R/A; Weight 96.16 kg ca1 (R); Height 5 ft. 3 in. (160.02 cm) (R); Pain 0/10; 23:43 BP 146 / 64; Pulse 60; Resp 18; Pulse Ox 98% ; ea 21:42 Body Mass Index 37.55 (96.16 kg, 160.02 cm) ca1 ED Course: 20:47 Patient arrived in ED. am2 21:44 Triage completed. ca1 21:45 Arm band placed on right wrist. ca1 22:54 Ivanna Lagos [facility]C [facility] kb 22:54 Devang Pettit MD is Attending Physician. kb 23:31 Mg Srinivasan RN is Primary Nurse. rr5 23:43 Patient has correct armband on for positive identification. Bed in low position. Call ea light in reach. Side rails up X2. 09/17 00:02 No provider procedures requiring assistance completed. ea 00:03 IV discontinued, intact, bleeding controlled, No redness/swelling at site. Pressure ea dressing applied. Administered Medications: 09/16 23:41 Drug: NS 0.9% 1000 ml Route: IV; Rate: 1000 ml; Site: right antecubital; ea 09/17 00:04 Follow up: Response: No adverse reaction; IV Status: Completed infusion; IV Intake: ea 1000ml 09/16 23:41 Drug: Zofran (Ondansetron) 4 mg Route: IVP; Site: right antecubital; ea 09/17 00:05 Follow up: Response: No adverse reaction ea Intake: 00:04 IV: 1000ml; Total: 1000ml. ea Outcome: 09/16 23:46 Discharge ordered by MD. beltre 09/17 00:02 Discharged to home ambulatory. ea Condition: stable Discharge instructions given to patient, Instructed on discharge instructions, follow up and referral plans. medication usage, Demonstrated understanding of instructions, follow-up care, medications, Prescriptions given X 2. 00:06 Patient left the ED. ea Signatures: Ivanna Lagos, PRETZEL COOKER-C PRETZEL COOKER-Ramona Longoria Elena, RN RN gM Magana, RN RN rr5 Izabella Lewis RN RN ca1
[2020-09-16] MEDS ORDERED: NA CHLORIDE 0.9% 1,000 ML ONE (23:52)
[2020-09-16] MEDS ORDERED: ONDANSETRON 4 MG/2 ML VIAL ONE (23:52)
[2020-09-17 00:46] LABS: Urine Blood TRACE (NEG); Urine Glucose NEGATIVE (NEG); Urine Protein TRACE (NEG); Urine Specific Gravity 1.025 (1.005-1.030)
== END 2020-09-17 00:06 | disposition home or self-care (01) ==
LOC: ER 20:34
DX: R11.2 Nausea with vomiting, unspecified (principal)
CPT/HCPCS: 85025; 80048; 36415; 81025; 80076; 81003; 83690; 96374; 99283; J7030; J2405